=== PATIENT | male | born 1950 | race Caucasian/White ===

== ENCOUNTER → 2017-06-08 | Outpatient (CLI) | payer OTHER ==
[~2017-06-08] MED LIST: GADOBUTROL 10 ML VIAL IVP ONE
== END ==
LOC: FIMAGING 08:15
PROVIDERS: ATTEND Psychiatry & Neurology Neurology
DX: R25.8 Other abnormal involuntary movements (principal); Z85.850 Personal history of malignant neoplasm of thyroid; Z98.890 Other specified postprocedural states
CPT/HCPCS: 70553; 72156; A9585; 86141-90

== ENCOUNTER → 2017-06-18 | Outpatient (CLI) | payer OTHER | LOC: FIMAGING 15:01 | PROVIDERS: ATTEND Psychiatry & Neurology Neurology | DX: R25.8 Other abnormal involuntary movements (principal); M51.34 Other intervertebral disc degeneration, thoracic region | CPT/HCPCS: 72157; A9585 ==

== ENCOUNTER → 2017-09-23 | Outpatient (CLI) | payer OTHER, MEDICARE | LOC: FIMAGING 13:01 | PROVIDERS: ATTEND Internal Medicine Pulmonary Disease | DX: R93.8 Abnormal findings on diagnostic imaging of other specified body structures (principal); Z85.858 Personal history of malignant neoplasm of other endocrine glands ==

== ENCOUNTER → 2017-10-03 | Outpatient (CLI) | payer OTHER, MEDICARE ==
[~2017-10-03] MED LIST changes: -GADOBUTROL 10 ML VIAL IVP ONE; +IOPAMIDOL (ISOVUE-300) 100 ML BTL ONE
== END ==
LOC: FIMAGING 14:14
PROVIDERS: ATTEND Internal Medicine Pulmonary Disease
DX: R05 Cough (principal); R07.89 Other chest pain; Z85.850 Personal history of malignant neoplasm of thyroid
CPT/HCPCS: 71260; Q9967

== ENCOUNTER → 2018-02-15 | Outpatient (CLI) | payer OTHER, MEDICARE | LOC: FIMAGING 13:33 | PROVIDERS: ATTEND Family Medicine Sports Medicine | DX: E89.0 Postprocedural hypothyroidism (principal); K21.9 Gastro-esophageal reflux disease without esophagitis; J30.9 Allergic rhinitis, unspecified; Z85.850 Personal history of malignant neoplasm of thyroid ==

== ENCOUNTER → 2018-11-07 | Outpatient (CLI) | payer OTHER, MEDICARE | LOC: FIMAGING 13:35 | PROVIDERS: ATTEND Physician Assistant Medical | DX: J42 Unspecified chronic bronchitis (principal) ==